=== PATIENT | female | born 2000 | race Caucasian/White ===

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

== ENCOUNTER 2020-01-05 09:54 | Outpatient (CLI) | payer OTHER ==
[~2020-01-05] VITALS: Ht 170.2 cm; Wt 74.9 kg
[2020-01-05] MEDS ORDERED: ESSE250T PO (10:22)
[2020-01-05] MEDS ORDERED: MAPA500T2 PO (10:22)
[2020-01-05] MEDS ORDERED: TUMS500C PO (10:22)
[2020-01-05] MEDS ORDERED: PRENTAB9 PO (10:22)
[2020-01-05 10:23] VITALS: BP 113/56
--- NOTE | 2020-01-06 06:29 | HPE ---
DATE OF ADMISSION: 01/05/2020 19-year-old, 2, para 0, abortus 1, last menstrual period (LMP) 04/27/2019, estimated date of confinement (EDC) 02/12/2020, at 34 and 4 weeks of gestation with questionable labor. She just had recent intercourse and was having some contractions. No vaginal bleeding or loss. Past history, 05/28/2019, spontaneous at 14 weeks. Risk factors are she is Rh negative and a teen . Labs are O negative, HIV negative, hepatitis negative, RPR negative, rubella immune. Varicella nonimmune. Gonorrhea and chlamydia are negative. 1-hour glucose was 92. No urine was done. No distress. Category 1 strip. No contractions noted. Accelerations, no decelerations. Moderate variability. Ultrasound showed cervical length of 3.32 cm, vertex presenting, limb movement tone motion. Cardiac activity was noted. Amniotic fluid index (HERACLIO) was 12.02 in three quadrants. The smallest pocket was 2.80. No vaginal bleeding or loss. Blood pressure 113/56, respirations 18, pulse 82, temperature is 98.2. Urine 1.010, pH 7, and trace of blood. She was given precautions regarding sexual intercourse and labor. She has an appointment next week with the [facility]. She was discharged undelivered.
== END 2020-01-05 11:26 | disposition home or self-care (01) ==
LOC: M LDO 09:54
PROVIDERS: ATTEND Obstetrics & Gynecology
DX: O26.893 Other specified pregnancy related conditions, third trimester (principal); O47.03 False labor before 37 completed weeks of gestation, third trimester; Z3A.34 34 weeks gestation of pregnancy
CPT/HCPCS: 59025; G0378; G0463

== ENCOUNTER 2020-01-06 09:55 | Inpatient (IN) | payer OTHER ==
[2020-01-06] VITALS (13 sets, daily range): BP systolic 109–123; BP diastolic 52–71
[~2020-01-06] VITALS: Ht 154.9 cm; Wt 74.4 kg
[~2020-01-06 09:55] MED LIST: ESSE250T PO; MAPA500T2 PO; PRENTAB9 PO; TUMS500C PO
[2020-01-06] MEDS ORDERED: PENICILLIN G POTASSIUM IV 5 MU in D5W MINI-BAG PLUS 100 ML IV STA (10:59)
[2020-01-06] MEDS ORDERED: MAGNESIUM *L&D* 4GM/100ML BAG (40MG/ML) IV ONE (11:00)
[2020-01-06] MEDS ORDERED: MAG SULF 1GM/100ML (MAG RUN) 1 GM in IV 1 EA IV SCH (11:15)
[2020-01-06] MEDS ORDERED: BETAMETHASONE SOLUSPAN 6MG/ML 5ML VIAL (J0702 PER 3MG) IM SCH (11:30)
[2020-01-06] MEDS ORDERED: MAG Sulf (L&D) 4 GM/100 ML 4 GM in IV 1 EA IV ONE ×4 (11:30)
[2020-01-06 11:39] LABS: APPEARANCE, URINE CLEAR (CLEAR); BACTERIA, URINE AUTO NEGATIVE (NEGATIVE); BILIRUBIN, URINE AUTO NEGATIVE (NEGATIVE); BLOOD, URINE BLOOD NEGATIVE (NEGATIVE); COLOR, URINE YELLOW (YELLOW); GLUCOSE, URINE (UA) AUTO NEGATIVE (NEGATIVE); KETONE, URINE AUTO NEGATIVE (NEGATIVE); LEUKOCYTE ESTERASE, URINE AUTO NEGATIVE (NEGATIVE); MUCUS, URINE SMALL (NEGATIVE); NITRITE, URINE AUTO NEGATIVE (NEGATIVE); PROTEIN, URINE AUTO NEGATIVE (NEGATIVE); RBC, URINE AUTO 0 /HPF (0-3); SPECIFIC GRAVITY URINE AUTO 1.009 (1.002-1.035); SQUAMOUS EPITHELIAL CELL UR AU 2 /HPF (0-6); UROBILINOGEN, URINE AUTO 0.2 mg/dL (0.0-2.0); WBC, URINE AUTO 0 /HPF (0-3)
[2020-01-06] MEDS: MAG Sulf (OBGYN) 20GM/500ML 20,000 MG in IV 1 EA IV SCH ×2 (11:40→20:39)
[2020-01-06 12:05] LABS: HEMATOCRIT 35.5 % (36.0-47.0); HEMOGLOBIN 11.9 g/dl (12.0-15.5); MEAN CORPUSCULAR HEMOGLOBIN 29.5 pg (27.0-33.0); MEAN CORPUSCULAR HGB CONC 33.5 g/dl (32.0-36.5); MEAN CORPUSCULAR VOLUME 88.1 fl (80.0-96.0); PLATELET COUNT, AUTOMATED 211 10^3/uL (150-450); RED BLOOD COUNT 4.03 10^6/uL (4.00-5.40); WHITE BLOOD COUNT 13.1 10^3/uL (4.0-10.0)
--- NOTE | 2020-01-06 12:42 | REP ---
Clinical: well-being. Spontaneous ruptured of membranes. Comparison: 06/10/2019 . Findings: Examination demonstrates a single live intrauterine in cephalic presentation. motion is identified by technologist. Placenta is noted left/fundal and grade I I without evidence for placenta previa or abruption. Amniotic fluid below normal range. Cervix measures 1.7 cm in length and appears closed. Nuchal cord cannot be excluded. Gestational age by LMP 34 weeks 5 days with RUSS 02/12/2020 . Gestational age by current measurements 34 weeks 1 day with RUSS 02/16/2020 . FHR equals 155 beats per minute. Amniotic fluid index: 6.2 cm Umbilical cord SD ratio: 2.16 (2.00 - 3.00) Estimated weight by current biometrical measurements 2284 grams (32nd percentile). Anatomical assessment demonstrates normal structures including cranium, choroid plexus, cavum, cerebellum/posterior fossa, facial features, lungs, four-chamber heart/ventricular outflow tracts, diaphragm, stomach, cord insertion/three-vessel cord, kidneys/bladder, spine, and extremities. Impression: 1. Single live advanced gestation in cephalic presentation demonstrating appropriate estimated weight. 2. Cervix measures 1.7 cm in length. 3. Nuchal cord cannot be excluded. 4. Amniotic fluid volume is below normal limits Electronically Signed by Hussain Orozco MD 01/06/2020 12:34 P
--- NOTE | 2020-01-06 12:46 | HPE ---
DATE OF ADMISSION: 01/06/2020 This lady is a 19-year-old, 2, para 0, abortus 1, last menstrual period (LMP) 04/27/2019, estimated date of confinement (EDC) 02/12/2020. She is at 34 weeks and 5 days with spontaneous rupture of membranes of clear liquid and no labor. Her risk factors is she has premature rupture of membranes (PPROM). She is at 34 and 5 weeks of gestation. She is Rh negative. Her past history, May 28, 2019 spontaneous at 14 weeks. Labs are O negative, HIV negative, hepatitis negative, RPR negative, rubella immune. Varicella nonimmune. Gonorrhea and chlamydia are negative. 1-hour glucose was 92. GBS status unknown. Urine is 1.000, pH of 8 and a trace of protein. Blood pressure is 123/65, respirations 18, pulse 100, temperature 97.5. On examination, no distress. Category 1 strip. Moderate variability. No contractions. No decelerations. Accelerations were noted. On sterile speculum examination, copious amount of fluid clear coming from the os documented Nitrazine positive, fern positive. GBS culture was done ongoing from 34 and 5 weeks of gestation. The cervix appeared to be closed. Our plan of care as discussed with the patient is to prophylactically give her antibiotics for GBS, steroids 24 hours to complete for lung enhancement. The issue of magnesium sulfate is controversial after 34 weeks, however, prophylactically will not hurt, and therefore, we will give her a 4 gram loading dose followed by 1 gram per 24 hours. Neonatology will be informed that we have a 34 and 5 week gestation, not in active labor, in the process of being maximized for possible delivery. Also, ultrasound will be done to confirm reduction in the amniotic fluid index (HERACLIO) as well as presentation of the cervical length and estimated weight. All questions were answered by the provider to the patient and her . Also, the patient will have normal vital signs in regards to temperature and complete blood count (CBC) on a 12-hour basis. If there is an elevation of white count, possibility of infection, therefore, initiate induction of labor.
[2020-01-06] MEDS: PENICILLIN G POTASSIUM IV 2.5 MU in IV 1 EA IV SCH ×3 (15:24→23:25)
[2020-01-06] MEDS: LR 1,000 ML IV SCH (19:30)
[2020-01-07] VITALS (15 sets, daily range): BP systolic 101–133; BP diastolic 51–79
[2020-01-07] MEDS ORDERED: ACETAMINOPHEN TAB 650MG DOSE (2X325MG) PO ONE (03:00)
[2020-01-07] MEDS: PENICILLIN G POTASSIUM IV 2.5 MU in IV 1 EA IV SCH ×3 (03:27→11:29)
[2020-01-07 06:12] LABS: HEMATOCRIT 32.7 % (36.0-47.0); MEAN CORPUSCULAR HEMOGLOBIN 29.7 pg (27.0-33.0); MEAN CORPUSCULAR HGB CONC 33.6 g/dl (32.0-36.5); MEAN CORPUSCULAR VOLUME 88.4 fl (80.0-96.0); PLATELET COUNT, AUTOMATED 200 10^3/uL (150-450); WHITE BLOOD COUNT 18.5 10^3/uL (4.0-10.0)
[2020-01-07] MEDS: LR 1,000 ML IV SCH (07:33)
[2020-01-07] MEDS ORDERED: diphenhydrAMINE 25MG CAP PO PRN (09:15)
[2020-01-07] MEDS ORDERED: SIMETHICONE 80 MG CHEW TAB PO PRN (09:15)
[2020-01-07] MEDS ORDERED: MOM 30ML SUSPENSION UDC PO PRN (09:15)
[2020-01-07] MEDS: PRENATAL VITAMINS CHEWABLE TABLET PO SCH (11:29)
[2020-01-07] MEDS ORDERED: BETAMETHASONE SOLUSPAN 6MG/ML 5ML VIAL (J0702 PER 3MG) IM SCH (11:30)
[2020-01-07] MEDS ORDERED: AZITHROMYCIN 250MG TABLET PO ONE (12:00)
[2020-01-07] MEDS: ACETAMINOPHEN 500 MG TAB PO PRN (17:32)
[2020-01-07] MEDS ORDERED: AMOXICILLIN 875 MG TAB PO SCH (18:00)
[2020-01-07] MEDS ORDERED: TERBUTALINE SULFATE 1 MG/ML VIAL (J3105) As Ordered ONE (19:38)
--- NOTE | 2020-01-07 19:38 | IPNPDOC ---
Text Note Date of Service The patient was seen on 01/07/20. NOTE Patient feeling LBP sharp contractions. Mild LOF. Good movement. VS WNL GEN NAD ABD NT, Gravid LE: SCDS in place FHT Category 1, FHR 140s, reactive, no decels, ctx q3-5min A/P: Fetus reassuring. Possible PTL ensuing from PPROM. Will give Terb to calm uterus. Possibly restart Magnesium sulfate if needed. D/w patient. VS,Fishbone, I+O VS, Fishbone, I+O Laboratory Tests 01/07/20 05:59 Vital Signs Date Time Temp Pulse Resp B/P (MAP) Pulse Ox O2 Delivery O2 Flow Rate FiO2 01/07/20 17:29 97.2 18 01/07/20 15:36 82 120/76 (91) I&O- Last 24 Hours up to 6 AM 01/07/20 06:00 Intake Total 3424 ml Output Total 3300 ml Balance 124 ml Tahmina Hoang MD Jan 07, 2020 19:38
[2020-01-07] MEDS ORDERED: TERBUTALINE SULFATE 1 MG/ML VIAL (J3105) SC ONE (19:45)
[2020-01-07] MEDS: DOCUSATE SODIUM 100 MG CAP PO SCH (21:00)
[2020-01-08] VITALS (8 sets, daily range): BP systolic 104–132; BP diastolic 52–89
[2020-01-08] MEDS ORDERED: LR 1,000 ML IV ONE (02:30)
[2020-01-08] MEDS ORDERED: TERBUTALINE SULFATE 1 MG/ML VIAL (J3105) SC ONE ×2 (02:30→03:15)
--- NOTE | 2020-01-08 02:33 | IPNPDOC ---
Text Note Date of Service The patient was seen on 01/08/20. NOTE Patient feeling contractionsearlier and given Terb x1 with relief. This AM feeling ctx again but not as strong. No LOF. VS WNL GEN NAD ABD NT, Gravid SVE Deferred LE: SCDS in place FHT Category 1, FHR 130s, reactive, no decels, ctx q5min/irritability A/P: Fetus reassuring and completed Beta. Will give another dose of Terb since did well and restart IVF. If Terb does not lyse then restart Magnesium sulfate. PPROM being treated with amoxicillin 875mg PO BID. VS,Fishbone, I+O VS, Fishbone, I+O Laboratory Tests 01/07/20 05:59 Vital Signs Date Time Temp Pulse Resp B/P (MAP) Pulse Ox O2 Delivery O2 Flow Rate FiO2 01/07/20 17:29 97.2 18 01/07/20 15:36 82 120/76 (91) I&O- Last 24 Hours up to 6 AM 01/07/20 06:00 Intake Total 3424 ml Output Total 3300 ml Balance 124 ml Tahmina Hoang MD Jan 07, 2020 19:40
[2020-01-08 06:39] LABS: HEMATOCRIT 29.9 % (36.0-47.0); HEMOGLOBIN 9.8 g/dl (12.0-15.5); MEAN CORPUSCULAR HEMOGLOBIN 29.5 pg (27.0-33.0); MEAN CORPUSCULAR HGB CONC 32.8 g/dl (32.0-36.5); MEAN CORPUSCULAR VOLUME 90.1 fl (80.0-96.0); PLATELET COUNT, AUTOMATED 177 10^3/uL (150-450); RED BLOOD COUNT 3.32 10^6/uL (4.00-5.40); WHITE BLOOD COUNT 15.9 10^3/uL (4.0-10.0)
[2020-01-08] MEDS: DOCUSATE SODIUM 100 MG CAP PO SCH ×2 (09:00→21:00)
[2020-01-08] MEDS ORDERED: AMOXICILLIN 875 MG TAB PO SCH (09:00)
[2020-01-08] MEDS: PRENATAL VITAMINS CHEWABLE TABLET PO SCH (09:08)
[2020-01-08] MEDS ORDERED: SLF 3 ML SYR IV PRN (09:15)
[2020-01-08 09:47] LABS: BASO % 0.2 % (0.0-1.0); EOS % 0.1 % (0.0-3.0); HEMOGLOBIN 10.3 g/dl (12.0-15.5); LYMPH # 1.7 10^3/uL (1.5-5.0); LYMPH % 12.1 % (24.0-44.0); MEAN CORPUSCULAR HEMOGLOBIN 29.9 pg (27.0-33.0); MEAN CORPUSCULAR HGB CONC 33.2 g/dl (32.0-36.5); MEAN CORPUSCULAR VOLUME 90.1 fl (80.0-96.0); MONO # 0.7 10^3/uL (0.0-0.8); MONO % 5.1 % (0.0-5.0); NEUTROPHILS % 79.4 % (36.0-66.0); PLATELET COUNT, AUTOMATED 188 10^3/uL (150-450); RED BLOOD COUNT 3.44 10^6/uL (4.00-5.40); WHITE BLOOD COUNT 13.9 10^3/uL (4.0-10.0)
--- NOTE | 2020-01-08 10:21 | IPNPDOC ---
Obstetrical Progress Note Date of Service Jan 08, 2020 Subjective Assumed care during board sign out of Aliza, a 19yo at 35+0wks, admitted on [id number] for PPROM. She reports continued clear fluid leakage, active movement; denies current contractions or VB. She last received terbutaline earlier this morning d/t reported contractions that have since ceased. She is betamethasone complete. Objective O: VSS, afebrile, normotensive FHR 135, moderate variability, + accels, no decels noted CTX by TOCO: None TAUS: VTX VE: 50/-3, head well applied Micro: GBS Negative Laboratory Tests 01/08/20 06:20 01/08/20 09:33 Vital Signs Date Time Temp Pulse Resp B/P (MAP) Pulse Ox O2 Delivery O2 Flow Rate FiO2 01/08/20 09:04 98.6 100 16 123/75 (91) Assessment and Plan Status: Reassuring Group B Streptococcus: Negative Anticipate: Vaginal Delivery Additional Comments A: Aliza is a 19yo at 35+0wks today, PPROM, not in labor, reassuring status with Category I FHT/Reactive. Beta complete. P: Comanage with OB Stop PO antibiotics Will cease any further Terbutaline Update Peds on patient status Intermittent monitoring Close monitoring of maternal/ status Monitor for s/sx of chorio PO and IV hydration Expectant management at this time Anticipate VINAYAK NARANJO CNM Jan 08, 2020 10:21
[2020-01-08] MEDS: CALCIUM CARBONATE 500 MG CHEW U/D PO PRN (11:25)
[2020-01-08] MEDS: SLF 3 ML SYR IV SCH ×2 (18:28→22:00)
--- NOTE | 2020-01-08 20:48 | IPNPDOC ---
Text Note Date of Service The patient was seen on 01/08/20. NOTE acceptance of care. patient is a 19 yo G1 @ 35wks gestation admitted for PPROM HD #3. Patient was given betamethasone x 2, 24hrs of mag and had 3 doses of terbutaline for tocol ysis yesterday night. She was also in IV ampicillin and azithromycin for latency. Today patient without concerns. denies sweats/chills. denies vb. GBS neg Vitals: normal, afebrile nad abd: gravid, soft, nt le: no edema/erythema/tenderness fht: 125/mod [place]/pos accel/no decel toco: uterine irritability a/p patient @ 35wks, PPROM. Currently no signs of infection or concern for placental abruption. discussed option of induction vs. expectant management. Risks of each route discussed. patient has opted for expectant management at this time. Reason for moving toward delivery are spontaneous labor, s/s infection, significant bleeding, as well as or maternal compromise. No tocolysis recommended when patient goes into labor. Continuous monitoring. q4hrs vitals. Le, DO VS,Fishbone, I+O VS, Fishbone, I+O Laboratory Tests 01/08/20 06:20 01/08/20 09:33 Vital Signs Date Time Temp Pulse Resp B/P (MAP) Pulse Ox O2 Delivery O2 Flow Rate FiO2 01/08/20 19:09 97.1 78 17 129/87 (101) I&O- Last 24 Hours up to 6 AM 01/08/20 05:59 Intake Total 603 ml Output Total 600 ml Balance 3 ml SHAR TOLEDO DO Jan 08, 2020 20:48
[2020-01-08] MEDS ORDERED: diphenhydrAMINE 25MG CAP PO PRN (21:00)
[2020-01-09 03:09] VITALS: BP 118/54
[2020-01-09 07:06] LABS: BASO # 0.1 10^3/uL (0.0-0.2); BASO % 0.5 % (0.0-1.0); EOS # 0.1 10^3/uL (0.0-0.5); EOS % 0.6 % (0.0-3.0); HEMATOCRIT 34.8 % (36.0-47.0); HEMOGLOBIN 11.8 g/dl (12.0-15.5); LYMPH # 2.8 10^3/uL (1.5-5.0); LYMPH % 18.7 % (24.0-44.0); MEAN CORPUSCULAR HEMOGLOBIN 29.9 pg (27.0-33.0); MEAN CORPUSCULAR HGB CONC 33.9 g/dl (32.0-36.5); MEAN CORPUSCULAR VOLUME 88.1 fl (80.0-96.0); MONO # 1.1 10^3/uL (0.0-0.8); MONO % 7.4 % (0.0-5.0); NEUTROPHILS # 10.3 10^3/uL (1.5-8.5); NEUTROPHILS % 69.4 % (36.0-66.0); PLATELET COUNT, AUTOMATED 212 10^3/uL (150-450); RED BLOOD COUNT 3.95 10^6/uL (4.00-5.40); WHITE BLOOD COUNT 14.8 10^3/uL (4.0-10.0)
[2020-01-09 08:26] VITALS: BP 123/73
[2020-01-09] MEDS: PRENATAL VITAMINS CHEWABLE TABLET PO SCH (08:28)
[2020-01-09] MEDS: DOCUSATE SODIUM 100 MG CAP PO SCH ×2 (08:29→11:31)
[2020-01-09] MEDS: SLF 3 ML SYR IV SCH ×3 (08:30→22:00)
[2020-01-09 11:25] VITALS: BP 114/71
[2020-01-09 15:16] VITALS: BP 101/52
--- NOTE | 2020-01-09 17:43 | IPNPDOC ---
Obstetrical Progress Note Date of Service Jan 09, 2020 Subjective Late entry - [place] of care. S: Aliza is a 19yo at 35+1wks gestation, admitted [id number] for PPROM, she is now 80 hours post ROM, clear fluid; pt continues to endorse excellent movement and denies any concerns, she denies fever/chills. Patient was given betamethasone x 2, 24hrs of mag and had 3 doses of terbutaline for tocolysis. She was also given IV ampicillin and azithromycin for latency. Objective O: VSS, afebrile, normotensive FHR: 135, moderate variability, + accels, no decels CTX on TOCO: none; pt reports dome mild cramping intermittently VE: deferred Vital Signs Date Time Temp Pulse Resp B/P (MAP) Pulse Ox O2 Delivery O2 Flow Rate FiO2 01/09/20 15:16 98.3 96 16 101/52 (68) Assessment Heart Rate Tracing: Category I Sterile Vaginal Examination Postion/Presentation: Cephalic presentation Assessment and Plan Status: Reassuring Group B Streptococcus: Negative Anticipate: Vaginal Delivery Additional Comments A: 19yo with PPROM, now at 80 hours post ROM, clear fluid, afebrile with Category I FHT/reactive and reassuring. P: Intermittent monitoring per protocol Close monitoring of maternal/ status Monitor for s/sx of chorio Expectant management Plan to induce tomorrow at 96 hours post ROM Consult with OB as indicated VINAYAK PANDYA CNM Jan 09, 2020 17:43
[2020-01-09] MEDS: CALCIUM CARBONATE 500 MG CHEW U/D PO PRN (18:08)
[2020-01-09 18:56] VITALS: BP 130/77
[2020-01-10] VITALS (10 sets, daily range): BP systolic 106–133; BP diastolic 60–87
[2020-01-10] MEDS: SLF 3 ML SYR IV SCH ×3 (06:00→22:00)
[2020-01-10 06:58] LABS: BASO # 0.1 10^3/uL (0.0-0.2); BASO % 0.5 % (0.0-1.0); EOS # 0.1 10^3/uL (0.0-0.5); EOS % 0.8 % (0.0-3.0); HEMATOCRIT 35.5 % (36.0-47.0); LYMPH # 2.8 10^3/uL (1.5-5.0); LYMPH % 20.3 % (24.0-44.0); MEAN CORPUSCULAR HEMOGLOBIN 29.9 pg (27.0-33.0); MEAN CORPUSCULAR HGB CONC 33.8 g/dl (32.0-36.5); MEAN CORPUSCULAR VOLUME 88.5 fl (80.0-96.0); MONO # 1.1 10^3/uL (0.0-0.8); MONO % 7.7 % (0.0-5.0); NEUTROPHILS # 9.5 10^3/uL (1.5-8.5); NEUTROPHILS % 68.3 % (36.0-66.0); PLATELET COUNT, AUTOMATED 171 10^3/uL (150-450); RED BLOOD COUNT 4.01 10^6/uL (4.00-5.40); WHITE BLOOD COUNT 13.9 10^3/uL (4.0-10.0)
[2020-01-10] MEDS: DOCUSATE SODIUM 100 MG CAP PO SCH ×2 (08:58→21:00)
[2020-01-10] MEDS: PRENATAL VITAMINS CHEWABLE TABLET PO SCH (08:58)
--- NOTE | 2020-01-10 13:23 | IPNPDOC ---
Obstetrical Progress Note Date of Service Jan 10, 2020 Subjective [place] of Care: S: Aliza is a 19yo at 35+2wks gestation, admitted [id number] for PPROM, she is now >96 hours post ROM, clear fluid; pt continues to endorse excellent movement and denies any concerns, she denies fever/chills. Patient was given bet amethasone x 2, 24hrs of mag and had 3 doses of terbutaline for tocolysis. She was also given IV ampicillin and azithromycin for latency. Objective O: VSS, afebrile, normotensive FHR 130s, moderate variability, + accels, no decels noted CTX by TOCO: irregular and mild, pt reports only mild cramping VE: 50/-3 (unchanged from [id number]) Vital Signs Date Time Temp Pulse Resp B/P (MAP) Pulse Ox O2 Delivery O2 Flow Rate FiO2 01/10/20 10:57 84 131/78 (95) 01/10/20 10:57 97.5 01/10/20 09:04 97.4 01/10/20 08:15 18 01/10/20 07:10 97.4 95 18 125/81 (96) 01/09/20 18:56 97.1 83 16 130/77 (94) 01/09/20 15:16 98.3 96 16 101/52 (68) Laboratory Tests 01/10/20 06:48: White Blood Count 13.9H, Red Blood Count 4.01, Hemoglobin 12.0, Hematocrit 35.5L, Mean Corpuscular Volume 88.5, Mean Corpuscular Hemoglobin 29.9, Mean Corpuscular Hemoglobin Concent 33.8, Red Cell Distribution Width 13.3, Platelet Count 171, Immature Granulocyte % (Auto) 2.4, Neutrophils (%) (Auto) 68.3H, Lymphocytes (%) (Auto) 20.3L, Monocytes (%) (Auto) 7.7H, Eosinophils (%) (Auto) 0.8, Basophils (%) (Auto) 0.5, Neutrophils # (Auto) 9.5H, Lymphocytes # (Auto) 2.8, Monocytes # (Auto) 1.1H, Eosinophils # (Auto) 0.1, Basophils # (Auto) 0.1, Nucleated Red Blood Cells % (auto) 0.0 Microbiology 01/06/20 Group B Streptococcus Screen (JERI) - Final, Complete Assessment Heart Rate Tracing: Category I Assessment and Plan Status: Reassuring Group B Streptococcus: Negative Anticipate: Vaginal Delivery Additional Comments A: 19yo with PPROM, now >96 hours post ROM, clear fluid, afebrile with Category I FHT/reactive and reassuring. Pt counseled on management options by myself and Dr. Causey. P: Intermittent monitoring per protocol Close monitoring of maternal/ status Monitor for s/sx of chorio Plan to start IOL with PO cytotec (25mcg for initial dose; 50mcg subsequent doses) Consult with OB as indicated Anticipate VINAYAK PANDYA CNM Jan 10, 2020 13:23
[2020-01-10] MEDS ORDERED: miSOPROStol 25 MCG 1/4 TAB (S0191) PO ONE (13:45)
[2020-01-10] MEDS: ACETAMINOPHEN 500 MG TAB PO PRN (18:12)
--- NOTE | 2020-01-10 19:12 | IPNPDOC ---
Text Note Date of Service The patient was seen on 01/10/20. NOTE assume care. patient is a 19yo at 35+2wks gestation, admitted [id number] for PPROM. Today, patient was recounseled regarding option of induction of labor vs. continued expectant management. Discussed increased risk respiratory distress and NICU admission and longer NICU stay with induction of labor. Increased risk of infection for mom as well as baby with prolonged expectant management. After discussing all the risks and benefits of each, patient desires to start induction of labor. Induction started with cytotec 25mcg. CAT I tracing. will continue with cytotec q 4hrs until having regular painful contractions. Will recheck at that time. DO Marium VS,Funmilayo, I+O VS, Funmilayo, I+O Laboratory Tests 01/10/20 06:48 Vital Signs Date Time Temp Pulse Resp B/P (MAP) Pulse Ox O2 Delivery O2 Flow Rate FiO2 01/10/20 18:14 97.6 107 18 126/77 (93) SHAR TOLEDO DO Jan 10, 2020 19:12
[2020-01-10] MEDS: miSOPROStol 50 MCG 1/2 TAB (S0191) PO SCH ×2 (19:26→23:23)
[2020-01-11] VITALS (52 sets, daily range): BP systolic 101–144; BP diastolic 58–97
[2020-01-11] MEDS: miSOPROStol 50 MCG 1/2 TAB (S0191) PO SCH ×2 (05:12→06:00)
[2020-01-11] MEDS: SLF 3 ML SYR IV SCH (06:00)
[2020-01-11] MEDS: DOCUSATE SODIUM 100 MG CAP PO SCH ×2 (09:00→23:54)
[2020-01-11] MEDS ORDERED: LACTATED RINGER'S 1000 ML IV STA (11:18)
[2020-01-11] MEDS ORDERED: BUTORPHANOL 2 MG/ML INJ (J0595) IV PRN (11:30)
[2020-01-11] MEDS ORDERED: PROMETHAZINE INJ 25 MG/ML VIAL (J2550) IV ONE (11:30)
[2020-01-11] MEDS ORDERED: OXYTOCIN DRIP 30 UNITS in IV 1 EA IV SCH (11:30)
[2020-01-11] MEDS: PRENATAL VITAMINS CHEWABLE TABLET PO SCH (11:40)
[2020-01-11] MEDS: LR 1,000 ML IV SCH ×2 (11:45→18:30)
--- NOTE | 2020-01-11 11:49 | IPNPDOC ---
Obstetrical Progress Note Date of Service Jan 11, 2020 Subjective [place] of Care: S: Aliza is a 19yo at 35+3wks gestation, admitted [id number] for PPROM, she is now 5 days post ROM, clear fluid, afebrile; pt continues to endorse excellent movement; she also reports painful contractions and bloody show, now veda res pain medication; she denies fever/chills. She has received 4x doses of cytotec (25mcg PO x1, 50mcg PO x3). Objective O: VSS, afebrile, normotensive FHR 135, moderate variability, + accels, no decels CTX by TOCO: present, but irregular VE: 3.5/80/-2 Vital Signs Date Time Temp Pulse Resp B/P (MAP) Pulse Ox O2 Delivery O2 Flow Rate FiO2 01/11/20 07:19 97.6 92 18 115/70 (85) 01/11/20 04:33 17 Sterile Vaginal Examination Postion/Presentation: Cephalic presentation Assessment and Plan Status: Reassuring Group B Streptococcus: Negative Anticipate: Vaginal Delivery Additional Comments A: 19yo at 35+3wks, undergoing IOL for PPROM, s/o cytotec x4. Category I FHT. P: Start pitocin per low dose protocol CEFM x2 Stadol/phenergan for pain control Can have epidural once she's in active labor Close maternal/ monitoring Monitor from s/sx of chorio Consult with OB as indicated Anticipate VINAYAK PANDYA CNM Jan 11, 2020 11:49
[2020-01-11] MEDS ORDERED: LR 500 ML IV ONE (15:00)
[2020-01-11] MEDS ORDERED: FENTANYL 2MCG/ML ROPIVACAINE 0.2% IN 0.9% NACL 100ML IVBAG As Ordered ONE (15:01)
[2020-01-11] MEDS ORDERED: EPIDURAL COMMENT XX SCH (16:00)
[2020-01-11] MEDS ORDERED: LACTATED RINGER'S 1000 ML IV PRN (16:00)
[2020-01-11] MEDS ORDERED: EPIDURAL/PCA KEYS XX PRN (16:00)
[2020-01-11] MEDS ORDERED: ONDANSETRON 4MG/2ML VIAL IV PRN (16:00)
[2020-01-11] MEDS ORDERED: ePHEDrine SULFATE 25 MG/5 ML(5MG/ML) SYRINGE IV PRN (16:00)
[2020-01-11] MEDS ORDERED: FENTANYL/ROPIVACAINE/NACL BAG 100 ML EPIDURAL SCH (16:00)
[2020-01-11] MEDS ORDERED: diphenhydrAMINE 50MG/ML VIAL (J1200) IV PRN (16:00)
[2020-01-11] MEDS ORDERED: REFRIGERATOR IV KEYS XX PRN (16:00)
[2020-01-11] MEDS ORDERED: NALOXONE INJ 0.4MG/1ML VIAL (J2310 PER 1MG) IV PRN (16:00)
[2020-01-11 21:21] LABS: CORD GAS ABE V 0.2; CORD GAS HCO3 V 24.9 MEQ/L; CORD GAS O2 SAT V 77.2 %; CORD GAS PCO2 V 40.6 mmHg; CORD GAS PH V 7.406 UNITS; CORD GAS PO2 V 31.7 mmHg; CORD GAS TCO2 V 26.2 MEQ/L
[2020-01-11 21:21] LABS: CORD GAS ABE A -0.3; CORD GAS HCO3 A 24.4 MEQ/L; CORD GAS O2 SAT A 79.9 %; CORD GAS PCO2 A 40.4 mmHg; CORD GAS PH A 7.399 UNITS; CORD GAS PO2 A 33.9 mmHg; CORD GAS SBC A 23.6 MEQ/L; CORD GAS TCO2 A 25.6 MEQ/L
[2020-01-11] MEDS ORDERED: IBUPROFEN 600MG TAB PO PRN (21:30)
[2020-01-11] MEDS ORDERED: ACETAMINOPHEN TAB 650MG DOSE (2X325MG) PO PRN (21:30)
[2020-01-11] MEDS ORDERED: RHOGAM 300 MCG (1500 IU) INJ (J2790) IM SCH (21:30)
[2020-01-11] MEDS ORDERED: DIBUCAINE 1% OINTMENT 30GM TOP PRN (21:30)
[2020-01-11] MEDS ORDERED: MEASLES,MUMPS,RUBELLA VACCINE INJ (MMR-II) (90707) SC SCH (21:30)
[2020-01-11] MEDS ORDERED: OXYTOCIN INJ 10 UNITS/ML VIAL (J2590) IV ONE (21:30)
[2020-01-11] MEDS ORDERED: ANUSOL HC CREAM 30GM TOP PRN (21:30)
[2020-01-11] MEDS ORDERED: METHYLERGONOVINE MALEATE 0.2 MG TAB PO PRN (21:30)
[2020-01-11] MEDS ORDERED: OXYTOCIN INJ 10 UNITS/ML VIAL (J2590) As Ordered ONE (21:30)
[2020-01-11] MEDS ORDERED: OXYTOCIN DRIP 30 UNITS in IV 1 EA IV ONE (21:30)
[2020-01-12] MEDS: IBUPROFEN 800 MG TAB PO PRN ×2 (00:39→11:13)
[2020-01-12] MEDS: ACETAMINOPHEN 500 MG TAB PO PRN ×2 (05:03→17:53)
[2020-01-12 05:36] VITALS: BP 104/55
[2020-01-12 07:44] LABS: MEAN CORPUSCULAR HEMOGLOBIN 29.7 pg (27.0-33.0); MEAN CORPUSCULAR HGB CONC 33.3 g/dl (32.0-36.5); MEAN CORPUSCULAR VOLUME 89.2 fl (80.0-96.0); PLATELET COUNT, AUTOMATED 182 10^3/uL (150-450); WHITE BLOOD COUNT 17.5 10^3/uL (4.0-10.0)
[2020-01-12] MEDS: DOCUSATE SODIUM 100 MG CAP PO SCH ×2 (09:35→20:37)
[2020-01-12] MEDS: PRENATAL VITAMINS CHEWABLE TABLET PO SCH (09:36)
--- NOTE | 2020-01-12 09:49 | IPN ---
DATE OF SERVICE: 01/12/2020 day #1. This lady is a 19-year-old 2 now para 1, came in with spontaneous rupture of membranes at 34 and 5 weeks of gestation, appropriately neuro complete, steroid complete, antibiotic complete, augmented with Pitocin, had a spontaneous vaginal delivery of a male infant, 4 pounds 12 ounces, 2150 grams, scores of 9 and 9 at 1 and 5 minutes respectively, cord around the neck times two twice tight. Arterial pH 7.39, base excess -0.3, venous pH 7.40, base excess 0.2. The patient had some issues with her epidural in the fact that she had a headache and a spinal ache and now she has a low backache. We are going to get anesthesia to see her regarding her pain in the needle site. We discussed phlebitis, cystitis, mastitis, endometritis, cellulitis, diet, exercise, pain management, perineal and breast and wound care. This morning, her blood pressure 104/55, respirations are 20, pulse is 93, temperature is 97.2. Her headache is gone. Now she is complaining of the injection site for her epidural. Her admitting hemoglobin initially on 01/07/2020 was 11.0, hematocrit 32.7, and platelets were 200 with a white count of 18.5. This was after having her steroid injections. On 01/10/2020, her hemoglobin 12.0, hematocrit 35.5, and platelets were 171, and her white count was 13.9. Our plan of management is she is going to get a breast pump prescription. She will get her medications at [facility] ([facility]) on Tuesday. She is planning on discharging on Tuesday if baby can go, and she will make her visit with [facility]. The patient and baby are presently doing well. The baby is latching well, and we will review her back pain with anesthesia.
[2020-01-12 17:59] VITALS: BP 127/80
--- NOTE | 2020-01-13 02:26 | OBDS ---
[facility] Obstetrical Discharge Sum. Obstetrical Discharge Summary Date: Jan 13, 2020 : 2 Pre-term: 1 Livin VDRL: Non-Reactive Rh: Negative (Received RhoGham) Rubella: Immune Labor Spontaneous after PPROM then augmented Delivery Uncomplicated Sex: Male Weight: grams (2120) Anesthesia: Regional Anesthesia Episiotomy none A/P, Post Course List any complications Admission diagnosis: 1. PPROM Discharge diagnosis: 1. PPROM 2. PTL Condition at Discharge: Good Discharge Instructions: Home Activity: Ad alicia, pelvic rest Diet: Regular Medications: As prescribed at 36wks Follow-up: 6wks Other: None Course: Uncomplicated until hospital admission. Hospital Course: Patient was admitted for PPROM which she received magnesium sulfate for 48hrs for neuroprotection and completed steroid course. Also, received prophylactic antibiotics. HD5 she went into spontaneous PTL which was not stopped and she had an uncomplicated . course was uncomplicated with normal lochia, normal urination, ambulation, tolerating a diet, and controlled pain. Tahmina Hoang MD Jan 12, 2020 10:10
--- NOTE | 2020-01-13 02:26 | IPNPDOC ---
Progress Note Date of Service: Jan 13, 2020 Day#: 2 Progress Note SUBJECT: Patient is a 19-year-old 2 now Para 1 status post uncomplicated spontaneous vaginal delivery due to PPROM, doing well day # 2. She has been ambulating, voiding spontaneously without issue and tolerating regular diet. Breast feeding without issue. Reports lochia is mild. Patient is ambulating well. Reports some cramping with . Denies any pain. OBJECTIVE: VITAL SIGNS: Within normal limits, afebrile. GENERAL: No acute distress HEENT: Mucous membranes are moist BREAST: Nontender, no erythema CARDIOVASCULAR: RRR RESPIRATORY: Bilaterally clear ABDOMINAL EXAMINATION: Soft, appropriate tenderness, nondistended, fundus -2 PERINEUM: Intact, minimal lochia EXTREMITIES: no edema, nontender ASSESSMENT: Patient is a 19-year-old 2 now Para 1 status post uncomplicated spontaneous vaginal delivery due to PPROM, doing well day # 2. Vitals within normal limits, afebrile, hemodynamically stable with no evidence of infection. PLAN: 1. Discharge to home today. 2. Tylenol and Motrin for pain. 3. Encourage breast feeding and ambulation. 4. Routine PP visit in 6 weeks in clinic. 5. Discussed return precautions at length. VS, I&O, 24H, Funmilayo Vital Signs/I&O Vital Signs Date Time Temp Pulse Resp B/P (MAP) Pulse Ox O2 Delivery O2 Flow Rate FiO2 01/12/20 05:36 97.2 93 20 104/55 (71) 98 Room Air I&O- Last 24 Hours up to 6 AM 01/12/20 06:00 Intake Total 2221.5 ml Output Total 2400 ml Balance -178.5 ml Laboratory Data 24H LABS Laboratory Tests 2 01/11/20 21:09: Cord Venous Blood pH 7.406, Cord Venous Blood PCO2 40.6, Cord Venous Blood PO2 31.7, Cord Venous Blood HCO3 24.9, Cord Venous Blood Total CO2 26.2, Cord Venous Base Excess (Actual) 0.2, Cord Venous Base Excess (Standard) 24.0, Cord Venous Blood Oxygen Saturation 77.2 01/11/20 21:10: Cord Arterial Blood pH 7.399, Cord Arterial Blood PCO2 40.4, Cord Arterial Blood PO2 33.9, Cord Arterial Blood HCO3 24.4, Cord Arterial Blood Total CO2 25.6, Cord Arterial Blood Base Excess -0.3, Cord Arterial Base Excess (Standard 23.6, Cord Arterial Bld Oxygen Saturation 79.9 01/12/20 06:52: Nucleated Red Blood Cells % (auto) 0.0 CBC/BMP Laboratory Tests 01/12/20 06:52 Microbiology Microbiology 01/06/20 Group B Streptococcus Screen (JERI) - Final, Complete Tahmina Hoang MD Jan 12, 2020 10:05
[2020-01-13 06:00] VITALS: BP 124/83
[2020-01-13] MEDS: IBUPROFEN 800 MG TAB PO PRN (06:26)
[2020-01-13] MEDS: PRENATAL VITAMINS CHEWABLE TABLET PO SCH (08:08)
[2020-01-13] MEDS: DOCUSATE SODIUM 100 MG CAP PO SCH (08:09)
--- NOTE | 2020-01-14 21:07 | IPN ---
DATE: 01/14/2020 This patient and her requested circumcision of their male . After discussing risks and benefits of the circumcision, the medical and the nonmedical indications, penile block and aftercare, expressed understanding of penile block, aftercare and bleeding, signed the consent form. All questions were answered. 20-minute discussion. We await the clearance by the client program manager.
--- NOTE | 2020-01-15 17:47 | DN ---
DATE: 01/11/2020 19-year-old 2, was admitted at 34 and 5 weeks of gestation with spontaneous rupture of membranes. She had appropriate antibiotic coverage, neuroprophylaxis, betamethasone, complete, at 35 and 4. She was induced with Pitocin at 4 milliunits per minute, had an epidural in place, had a spontaneous vaginal delivery, male infant, 4 pounds 12 ounces, 2150 grams, scores of 9 and 9 at one and five minutes respectively. Cord around the neck times two. Arterial pH 7.39, base excess -0.3, venous pH 7.40, base excess 0.2. Placenta delivered spontaneously thereafter, three-vessel cord, membranes and tissues intact. On examination, anterior, posterior, lateral borges complete. Sphincter was tight. Uterus contracted well under Pitocin. In summary, we have a premature rupture of membranes (PPROM) at 34 and 5 weeks gestation, Rh negative, delivered a live male infant. Baby and patient tolerating procedure well.
== END 2020-01-13 11:07 | disposition home or self-care (01) | DRG 807 ==
LOC: M LDO 09:55 → M LDI 10:49 → M OBS 01-11 23:15
PROVIDERS: ADMIT Obstetrics & Gynecology; ATTEND Obstetrics & Gynecology
PROC: 10E0XZZ Delivery of Products of Conception, External Approach (ICD-10-PCS; principal; 2020-01-11)
DX: O42.013 Preterm premature rupture of membranes, onset of labor within 24 hours of rupture, third trimester (principal); Z37.0 Single live birth; Z3A.34 34 weeks gestation of pregnancy; O69.81X0 Labor and delivery complicated by cord around neck, without compression, not applicable or unspecified